=== PATIENT | female | born 1970 ===

== ENCOUNTER 2017-07-14 13:22 | Emergency (ER) | payer OTHER ==
[2017-07-14 13:39] VITALS: BP 125/78
[2017-07-14 14:07] LABS: Hematocrit 39.6 % (30.3-42.9); Hemoglobin 13.5 gm/dl (10.1-14.3); Mean Corpuscular HGB Conc 34 % (30-34); Mean Corpuscular Hemoglobin 33 pg (28-32); Mean Corpuscular Volume 97 fl (79-97); Platelet Count 212 K/mm3 (140-440); Red Blood Count 4.08 M/mm3 (3.65-5.03); Red Cell Distribution Width 12.9 % (13.2-15.2); White Blood Count 7.5 K/mm3 (4.5-11.0)
[2017-07-14 14:19] LABS: INR 0.93 (0.87-1.13)
[2017-07-14 14:20] LABS: Partial Thromboplastin Time 29.5 Sec. (24.2-36.6)
--- NOTE | 2017-07-15 14:17 | Vascular Lab Report ---
Left Lower Extremity Venous Duplex Study: Reason for Exam: Pain of the left lower extremity. Comments on the Right: A limited duplex study was done of the proximal veins of the right lower extremity. All veins visualized are freely compressible without evidence of internal echogenicity. Flow is spontaneous and phasic throughout. No evidence of acute or chronic thrombus is seen in any of the vessels visualized. Comments on the Left: All veins visualized are freely compressible without evidence of internal echogenicity. Flow is spontaneous and phasic throughout. No evidence of acute or chronic thrombus is seen in any of the vessels visualized. Impression: No evidence of acute or chronic deep venous thrombosis in the left lower extremity.
== END 2017-07-14 15:51 | disposition left against medical advice (07) ==
LOC: ED 13:22
DX: M79.606 Pain in leg, unspecified (principal); Z53.21 Procedure and treatment not carried out due to patient leaving prior to being seen by health care provider
CPT/HCPCS: 36415; 85027; 85610; 85730